=== PATIENT | male | born 1970 | race Caucasian/White ===

== ENCOUNTER 2022-04-15 14:19 | Emergency (ER) | payer MEDICARE, MEDICAID ==
[~2022-04-15] VITALS: Ht 170.2 cm; Wt 72.0 kg
[2022-04-15 14:23] VITALS: BP 151/70
[2022-04-15 14:52] LABS: BASOPHILS # (AUTO) 0.1 X10'3 (0-0.2); BASOPHILS % (AUTO) 0.8 % (0-1); EOSINOPHILS # (AUTO) 0.1 X10'3 (0-0.9); EOSINOPHILS % (AUTO) 0.7 % (0-6); HEMATOCRIT 47.5 % (42.0-52.0); HEMOGLOBIN 16.2 g/dl (14.0-17.9); LYMPHOCYTES # (AUTO) 2.8 X10'3 (1.1-4.8); LYMPHOCYTES % (AUTO) 24.2 % (21-51); MEAN CORPUSCULAR HGB CONC 34.1 g/dL (33.0-36.5); MEAN CORPUSCULAR VOLUME 96.7 FL (78-98); MEAN PLATELET VOLUME 8.3 FL (7.4-10.4); MONOCYTES # (AUTO) 0.8 X10'3 (0-0.9); NEUTROPHILS # (AUTO) 7.8 X10'3 (1.8-7.7); NEUTROPHILS % (AUTO) 67.3 % (42-75); PLATELET COUNT 280 X10'3 (140-440); RED BLOOD COUNT 4.91 X10'6 (4.70-6.10); WHITE BLOOD COUNT 11.6 X10'3 (4.5-11.0)
[2022-04-15 15:10] LABS: ALANINE AMINOTRANSFERASE 16 U/L (12-78); ALBUMIN 4.1 G/DL (3.4-5.0); ALKALINE PHOSPHATASE 79 IU/L (46-116); ANION GAP 7 (8-16); ASPARTATE AMINO TRANSFERASE 19 U/L (10-37); BILIRUBIN,TOTAL 0.5 MG/DL (0.1-1.0); BLOOD UREA NITROGEN 4 MG/DL (7-18); BUN/CREATININE RATIO 4.9 (5.4-32.0); CALCIUM 9.1 MG/DL (8.5-10.1); CHLORIDE 103 MMOL/L (99-107); CREATININE 0.81 MG/DL (0.60-1.10); GLUCOSE 92 MG/DL (70-104); LIPASE 89 U/L (73-393); POTASSIUM 3.8 MMOL/L (3.5-5.1); SODIUM 138 MMOL/L (135-145); TOTAL CARBON DIOXIDE 27.8 MMOL/L (24-32); TOTAL PROTEIN 8.2 G/DL (6.4-8.2); eGFR > 90 ML/MIN
[2022-04-15 17:12] LABS: CLARITY,URINE SLIGHTLY CLOUDY (Clear); COLOR,URINE YELLOW (Yellow); GLUCOSE, URINE NEGATIVE (Neg); KETONES,URINE NEGATIVE (Neg); LEUKOCYTE ESTERASE ,URINE TRACE (Neg); NITRITES, URINE NEGATIVE (Neg); OCCULT BLOOD,URINE SMALL (Neg); PROTEIN,URINE NEGATIVE (Neg); UROBILINOGEN,URINE 0.2 E.U/dL (0.2-1.0)
[2022-04-15 17:46] LABS: UA COLLECTION TYPE CLN CATCH MIDSTREAM
[2022-04-15 17:57] LABS: MUCUS STRANDS FEW /LPF (Neg); SQUAMOUS EPITHELIAL CELL,UR FEW /LPF (FEW); TRANSITIONAL EPI CELLS,URINE FEW /HPF
[2022-04-15 17:58] LABS: BACTERIA,URINE FEW /HPF (Neg); RBC,URINE 0-2 /HPF (0-2); WBC CLUMPS,URINE FEW /HPF (NEGATIVE)
[2022-04-15] MEDS ORDERED: amox tr/potassium clavulanate 875/125mg TAB PO ONE (18:15)
[2022-04-15] MEDS ORDERED: AMOX-117 PO (18:20)
== END 2022-04-15 18:44 | disposition home or self-care (01) ==
LOC: ER 14:20
DX: K04.7 Periapical abscess without sinus (principal); N39.0 Urinary tract infection, site not specified; K62.5 Hemorrhage of anus and rectum; Z79.899 Other long term (current) drug therapy
CPT/HCPCS: 36415; 41800; 80053; 81001; 83690; 85025; 87088; 99284

== ENCOUNTER 2022-07-05 16:11 | Emergency (ER) | payer MEDICARE, MEDICAID ==
[~2022-07-05] VITALS: Ht 170.2 cm; Wt 65.9 kg
[2022-07-05 16:16] VITALS: BP 163/73
[2022-07-05] MEDS ORDERED: CETI10TA15 PO (19:03)
[2022-07-05] MEDS ORDERED: AMOX500C2 PO (19:03)
[2022-07-05] MEDS ORDERED: amoxicillin 250mg capsule PO ONE (19:05)
== END 2022-07-05 19:50 | disposition home or self-care (01) ==
LOC: ER 16:11
DX: K04.7 Periapical abscess without sinus (principal); H91.92 Unspecified hearing loss, left ear; F17.200 Nicotine dependence, unspecified, uncomplicated; Z79.899 Other long term (current) drug therapy
CPT/HCPCS: 99283

== ENCOUNTER 2023-05-17 13:16 | Emergency (ER) | payer MEDICARE, MEDICAID ==
[~2023-05-17] VITALS: Ht 170.2 cm; Wt 70.2 kg
[~2023-05-17 13:16] MED LIST: CETI10TA15 PO
[2023-05-17 13:25] VITALS: TEMP 98.2
[2023-05-17] MEDS: ketorolac tromethamine 15mg/ml inj. IM ONE (15:54)
[2023-05-17] MEDS ORDERED: AMOX-580 PO (15:59)
[2023-05-17 16:19] VITALS: BP 168/87; PULSE 57; RESP 16; O2SAT 98
== END 2023-05-17 16:49 | disposition home or self-care (01) ==
LOC: ER 13:16
DX: K02.9 Dental caries, unspecified (principal); K04.7 Periapical abscess without sinus
CPT/HCPCS: 96372; 99283; J1885

== ENCOUNTER 2023-07-21 09:03 | Emergency (ER) | payer MEDICARE, MEDICAID ==
[~2023-07-21] VITALS: Ht 175.3 cm; Wt 55.1 kg
[2023-07-21 09:06] VITALS: BP 188/83; PULSE 45; RESP 18; TEMP 98.7; O2SAT 97
== END 2023-07-21 10:43 | disposition left against medical advice (07) ==
LOC: ER 09:03
DX: M25.512 Pain in left shoulder (principal); Z53.21 Procedure and treatment not carried out due to patient leaving prior to being seen by health care provider

== ENCOUNTER 2023-09-01 06:22 | Emergency (ER) | payer MEDICARE, MEDICAID ==
[~2023-09-01] VITALS: Ht 170.2 cm; Wt 68.2 kg
[2023-09-01 06:47] VITALS: TEMP 98.4
[2023-09-01] MEDS: LIDOcaine 1% W/epiNEPHrine 1:100,000 20ml vial SQ ONE (06:55)
[2023-09-01 08:33] VITALS: BP 170/89; PULSE 46; RESP 16; O2SAT 98
== END 2023-09-01 08:37 | disposition home or self-care (01) ==
LOC: ER 06:24
DX: L76.22 Postprocedural hemorrhage of skin and subcutaneous tissue following other procedure (principal); J44.9 Chronic obstructive pulmonary disease, unspecified; F12.90 Cannabis use, unspecified, uncomplicated; Z90.49 Acquired absence of other specified parts of digestive tract; Z72.89 Other problems related to lifestyle; Z79.899 Other long term (current) drug therapy; Z95.0 Presence of cardiac pacemaker
CPT/HCPCS: 12002; 71045; 99283; A6212; A6222; A6258; Z7610